=== PATIENT | male | born 1995 | race Caucasian/White ===

== ENCOUNTER 2016-11-03 10:05 | Emergency (ER) | payer SELFPAY ==
[~2016-11-03] VITALS: Ht 185.4 cm; Wt 58.8 kg
[2016-11-03 10:08] VITALS: BP 150/85
[2016-11-03] MEDS ORDERED: LIDOCAINE 1%, 20ML ONE (10:43)
[2016-11-03] MEDS ORDERED: LIDOCAINE 1%, 20ML SQ ONE (11:00)
[2016-11-03] MEDS ORDERED: BACITRACIN ZINC OINT 500U/GM, 0.9 GM ONE (11:30)
== END 2016-11-03 11:46 | disposition home or self-care (01) ==
LOC: ED 11:19
DX: S61.212A Laceration without foreign body of right middle finger without damage to nail, initial encounter (principal); F17.210 Nicotine dependence, cigarettes, uncomplicated; W25.XXXA Contact with sharp glass, initial encounter; Y93.G1 Activity, food preparation and clean up; Y99.8 Other external cause status; Y92.89 Other specified places as the place of occurrence of the external cause
CPT/HCPCS: 12001; 99283; 99284

== ENCOUNTER 2020-07-25 21:15 | Emergency (ER) | payer MEDICAID ==
[~2020-07-25] VITALS: Ht 182.9 cm; Wt 64.0 kg
--- NOTE | 2020-07-25 22:01 | NUR ---
PT TO ROOM FROM LOBBY
[2020-07-25 22:11] LABS: MICROSCOPIC INDICATED
--- NOTE | 2020-07-25 22:17 | NUR ---
PT WITH C/O INTERMITTANT 'KIDNEY PAIN' ON THE RIGHT FLANK WITH DIFFICULTY URINATING AND PAIN WITH URINATION FOR 1 WEEK. PT STATES PAIN IS MILD RIGHT NOW AND DESCRIBES IT AN 'ACHE' TYPE PAIN. ALSO STATES HE HAS NOTICED BLOOD IN HIS URINE.
--- NOTE | 2020-07-25 22:20 | NUR ---
I [facility] AND NOW PT TO ULTRASOUND
[2020-07-25 22:36] LABS: ALANINE AMINOTRANSFERASE 149 U/L (12-78); ALBUMIN 4.2 g/dL (3.4-5.0); ANION GAP 5 mmol/L (5-15); CALCIUM 9.4 mg/dL (8.5-10.1); CHLORIDE 106 mmol/L (98-107); CREATININE 1.02 mg/dL (0.7-1.3)
[2020-07-25 22:38] LABS: ALKALINE PHOSPHATASE 88 U/L (45-117); BILIRUBIN,TOTAL 0.6 mg/dL (0.2-1.0); TOTAL PROTEIN 7.9 g/dL (6.4-8.2)
[2020-07-25 22:42] LABS: BASOPHILS % (AUTO) 1 % (0-1); EOSINOPHILS % (AUTO) 2 % (1-7); LYMPHOCYTES % (AUTO) 21 % (22-44); MEAN CORPUSCULAR HGB CONC 35.2 g/dL (33.2-36.2); MEAN PLATELET VOLUME 6.8 fL (7.4-10.4); MONOCYTES % (AUTO) 13 % (2-9); NEUTROPHILS % (AUTO) 64 % (42-75); PLATELET COUNT 224 x10^3/uL (130-400); RED BLOOD COUNT 4.19 x10^6/uL (4.38-5.82); RED CELL DISTRIBUTION WIDTH 12.5 % (9.4-14.8)
[2020-07-25 23:08] VITALS: BP 155/103
[2020-07-25 23:10] LABS: MD MORPH REVIEW ONLY
[2020-07-25 23:11] LABS: ANISOCYTOSIS 1+; HYPOCHROMIA 1+
[2020-07-25 23:12] LABS: <PLATELET ESTIMATE> ADEQUATE; <PLT MORPHOLOGY> NORMAL PLT MORPH; POLYCHROMASIA 1+
--- NOTE | 2020-07-25 23:18 | NUR ---
PT RESTING ON GURNEY. DENIES PAIN. NO DISTRESS. VSS.
[2020-07-25] MEDS ORDERED: AZITHROMYCIN 500 MG TABLET ONE (23:34)
[2020-07-25] MEDS ORDERED: CEFTRIAXONE 1,000 MG ONE (23:34)
[2020-07-26] MEDS ORDERED: AZITHROMYCIN 500 MG TABLET PO ONE
[2020-07-26] MEDS ORDERED: CEFTRIAXONE 250 MG IM ONE
--- NOTE | 2020-07-26 00:18 | NUR ---
PT MEDICATED PER EMAR. PT LEFT BEFORE RECIEVING DISCHARGE PAPERWORK
== END 2020-07-26 00:21 | disposition home or self-care (01) ==
LOC: ED 23:18
DX: R30.0 Dysuria (principal); R10.9 Unspecified abdominal pain; F10.129 Alcohol abuse with intoxication, unspecified; R31.9 Hematuria, unspecified; Y90.0 Blood alcohol level of less than 20 mg/100 ml; F17.200 Nicotine dependence, unspecified, uncomplicated
CPT/HCPCS: 36415; 76700; 80053; 81001; 83690; 85025; 87491; 87591; 96372; 99284; J0696